=== PATIENT | male | born 1940 | race Two or more races ===

== ENCOUNTER 2020-07-11 05:26 | Inpatient (IN) | payer MEDICARE, OTHER ==
[2020-07-11] VITALS (17 sets, daily range): BP systolic 157–197; BP diastolic 60–89
[~2020-07-11] VITALS: Ht 170.2 cm; Wt 83.9 kg
[2020-07-11] MEDS ORDERED: 1/2 NS 1000ml IV ONE (05:27)
[2020-07-11] MEDS ORDERED: NS 500ML ONE (05:27)
[2020-07-11] MEDS ORDERED: CARVEDILOL12.5 MG ORAL (06:13)
[2020-07-11] MEDS ORDERED: MYRBETRIQ50 MG PO (06:13)
[2020-07-11] MEDS ORDERED: TRADJENTA5 MG PO (06:13)
[2020-07-11] MEDS ORDERED: ATORVASTATIN CA20 MG ORAL (06:13)
[2020-07-11] MEDS ORDERED: OYSTER SHELL 21 EAC2 PO (06:13)
[2020-07-11] MEDS ORDERED: DOXAZOSIN MESYLA1 MG ORAL (06:13)
[2020-07-11] MEDS ORDERED: FERROUS SULFAT325 MG ORAL (06:13)
[2020-07-11] MEDS ORDERED: OMEGA-31000 M1 PO (06:13)
[2020-07-11] MEDS ORDERED: HYDRALAZINE HC100 MG ORAL (06:13)
[2020-07-11] MEDS ORDERED: ceFAZolin sod 1 GM in NS 55 ML IVPB ONE (07:00)
[2020-07-11] MEDS ORDERED: fentaNYL 100 mcg/2 mL IV ONE (07:08)
[2020-07-11] MEDS ORDERED: Midazolam 2mg/2ml Inj ONE (07:09)
[2020-07-11] MEDS ORDERED: Rocuronium Bromide 50mg/5ml Inj IV ONE (07:17)
[2020-07-11] MEDS ORDERED: Iothalamate Meglumine 60% 50ML INJ ONE (07:19)
[2020-07-11] MEDS ORDERED: Sterile Water Irrig 1000ml IRRIG ONE (07:30)
[2020-07-11] MEDS ORDERED: LR 1000ml ONE (07:30)
[2020-07-11] MEDS ORDERED: NS Irrig 1000ml ONE (07:30)
--- NOTE | 2020-07-11 07:37 | Anethesia Preoperative Eval ---
Anesthesia Pre-op PMH/ROS General Date of Evaluation: Jul 11, 2020 Time of Evaluation: 07:34 Anesthesiologist: judith ASA Score: ASA 3 Mallampati Score Class I : Soft palate, uvula, fauces, pillars visible Class II: Soft palate, uvula, fauces visible Class III: Soft palate, base of uvula visible Class IV: Only hard plate visible Mallampati Classification: Class III Surgeon: Jackie Diagnosis: Bladder CA Surgical Procedure: TURP Anesthesia History: none, other - cardiac arrest post nephrectomy Family History: no anesthesia problems Allergies: Coded Allergies: No Known Allergies (Unverified , 07/11/20) Medications: see eMAR Patient NPO?: Yes NPO Date: Jul 11, 2020 NPO Time: 00:01 Past Medical History Cardiovascular: Reports: HTN, CAD, other - hx cardiac arrest Pulmonary: Denies: asthma, COPD, LENIN, other Gastrointestinal/Genitourinary: Reports: CRI Neurologic/Psychiatric: Denies: dementia, CVA, depression/anxiety, TIA, other Endocrine: Reports: DM; Denies: hypothyroidism, steroids, other HEENT: Denies: cataract (L), cataract (R), glaucoma, EKWOK (L), EKWOK (R), other Hematology/Immune: Denies: anemia, DVT, bleeding disorder, other Musculoskeletal/Integumentary: Denies: OA, RA, DJD, DDD, edema, other PMH Narrative: CAD, Cardiac Arrest a year ago post nephrectomy, delayed emergence from anesthesia post TURP according to daughter PSxH Narrative: Nephrectomy; TURP X2 Anesthesia Pre-op Phys. Exam Physician Exam Last Vital Signs Date Time Temp Pulse Resp B/P (MAP) Pulse Ox O2 Delivery O2 Flow Rate FiO2 07/11/20 05:55 Room Air 07/11/20 05:54 97.3 61 20 184/76 99 Constitutional: NAD Neurologic: CN 2-12 intact Cardiovascular: RRR Respiratory: CTA Gastrointestinal: S/NT/ND Airway Exam Mallampati Classification 3 Mallampati Score: Class III MO: full ROM: full Dentures: no upper, no lower Anesthesia Pre-op A/P Labs Chemistry Test 07/11/20 05:51 POC Whole Blood Glucose Pending Studies Pre-op Studies: EKG - SR Risk Assessment & Plan Assessment: denies cp/changes in health, spoke with daughter Plan: General Status Change Before Surgery: No Pre-Antibiotics Drug: ancef Given Within 1 Hr of Incision: Yes Time Given: 07:40 Lis Ansari CRNA Jul 11, 2020 07:37
[2020-07-11] MEDS ORDERED: fentaNYL 100 mcg/2 mL IV PRN (07:45)
[2020-07-11] MEDS ORDERED: Metoclopramide 10mg/2ml Inj IVP PRN (07:45)
--- NOTE | 2020-07-11 07:53 | Pre-Procedure Note/Attestation ---
Pre-Procedure Note/Attestation Complete Prior to Procedure Planned Procedure: not applicable Procedure Narrative: TURBT RPG Indications for Procedure Pre-Operative Diagnosis: bladder tumor Attestation I attest that I discussed the nature of the procedure; its benefits; risks and complications; and alternatives (and the risks and benefits of such alternatives), prior to the procedure, with the patient (or the patient's legal technical services representative). I attest that, if there was a reasonable possibility of needing a blood t ransfusion, the patient (or the patient's legal technical services representative) was given the [facility] standardized written summary, pursuant to the Jori Haylie Blood Safety Act ([place] Health and Safety Code # 1645, as amended). I attest that I re-evaluated the patient just prior to the surgery and that there has been no change in the patient's H&P, except as documented below: Valentin Mejia MD Jul 11, 2020 07:53
[2020-07-11] MEDS ORDERED: Lidocaine 1% MPF 10mg/ml 5ml ONE (08:00)
--- NOTE | 2020-07-11 08:06 | Brief Operative Note ---
Immediate Post Operative Note Operative Note Pre-op Diagnosis: bladder tumor Procedure: TURBT RPG Post-op Diagnosis: same Post-op Diagnosis: same as pre-op Surgeon: Pk Mejia Anesthesia: general Specimen: yes Complications: none Condition: stable Fluids: 500 Estimated Blood Loss: minimal Implant(s) used?: No Valentin Mejia MD Jul 11, 2020 08:06
[2020-07-11] MEDS ORDERED: Tylenol #3 tab (300mg/30mg) ORAL PRN (08:15)
[2020-07-11] MEDS ORDERED: HYDROmorphone 1mg/ml Carpuject SUBQ PRN (08:15)
[2020-07-11] MEDS ORDERED: Neostigmine 1mg/ml 10ml Inj ONE (08:17)
[2020-07-11] MEDS ORDERED: Glycopyrrolate 0.2mg/ml 1ml Vial ONE ×2 (08:17→08:19)
[2020-07-11] MEDS ORDERED: ePHEDrine 50mg/ml Inj ONE (08:17)
[2020-07-11] MEDS ORDERED: Metoprolol Tartrate 5mg/5ml Inj ONE (08:33)
[2020-07-11] MEDS ORDERED: HYDROmorphone 1mg/ml Carpuject IVP ONE (09:00)
[2020-07-11] MEDS ORDERED: Labetalol 5mg/ml 20ml vial IV PRN (09:00)
--- NOTE | 2020-07-11 09:00 | Immediate Post-Op Evaluation ---
Immediate Post-Op Evalulation Immediate Post-Op Evalulation Procedure: TURP Date of Evaluation: Jul 11, 2020 Time of Evaluation: 08:59 IV Fluids: 1000 Blood Products: 0 Estimated Blood Loss: 5 Blood Pressure Systolic: 170 Blood Pressure Diastolic: 80 Pulse Rate: 79 Respiratory Rate: 14 O2 Sat by Pulse Oximetry: 98 Temperature (Fahrenheit): 98.1 Nausea: No Vomiting: No Patient Status: awake, reacts, patent Hydration Status: adequate Drug: ancef Given Within 1 Hr of Incision: Yes Time Given: 07:40 Lis Ansari CRNA Jul 11, 2020 09:00
[2020-07-11 10:03] LABS: HEMATOCRIT 29.8 % (42.0-52.0); HEMOGLOBIN 10.5 G/DL (14.2-18.0); MEAN CORPUSCULAR VOLUME 83 FL (80-99); PLATELET COUNT 72 K/UL (150-450); RED BLOOD COUNT 3.59 M/UL (4.70-6.10); RED CELL DISTRIBUTION WIDTH 14.6 % (11.6-14.8); WHITE BLOOD COUNT 4.6 K/UL (4.8-10.8)
[2020-07-11 10:20] LABS: POTASSIUM 4.7 MMOL/L (3.5-5.1)
--- NOTE | 2020-07-11 11:02 | 48 Hour Post Anesthesia Eval ---
Post Anesthesia Evaluation Procedure: TURBT Date of Evaluation: Jul 11, 2020 Time of Evaluation: 11:01 Blood Pressure Systolic: 169 0: 70 Pulse Rate: 78 Respiratory Rate: 14 O2 Sat by Pulse Oximetry: 98 Airway: patent Nausea: No Vomiting: No Hydration Status: adequate Cardiopulmonary Status: stable Mental Status/LOC: patient returned to baseline Post-Anesthesia Complications: none Follow-up care needed: N/A Lsi Ansari CRNA Jul 11, 2020 11:02
[2020-07-11] MEDS ORDERED: D5 1/2NS 1,000 ML IV SCH (12:00)
--- NOTE | 2020-07-11 15:04 | General Progress Note ---
Subjective Allergies: Coded Allergies: No Known Allergies (Unverified , 07/11/20) Subjective asked to follow d/w urology Objective Last 24 Hour Vital Signs Date Time Temp Pulse Resp B/P (MAP) Pulse Ox O2 Delivery O2 Flow Rate FiO2 07/11/20 13:40 97 Nasal Cannula 3.0 32 07/11/20 12:30 97.5 76 16 160/76 (104) 97 07/11/20 11:50 97.5 78 16 162/78 (106) 97 07/11/20 11:37 Nasal Cannula 3.0 07/11/20 11:20 97.3 75 16 166/80 (108) 97 07/11/20 11:02 78 14 98 07/11/20 11:00 98.0 76 17 164/84 96 Nasal Cannula 3 07/11/20 10:45 75 13 167/74 96 Nasal Cannula 3 07/11/20 10:30 79 15 183/83 96 Nasal Cannula 3 07/11/20 10:15 73 17 179/84 96 Nasal Cannula 3 07/11/20 10:05 189/89 07/11/20 10:00 72 14 187/87 97 Nasal Cannula 3 07/11/20 09:30 77 15 186/82 100 Nasal Cannula 3 07/11/20 09:15 78 18 187/84 100 Simple Mask 6 07/11/20 09:08 189/87 07/11/20 09:00 75 17 197/88 100 Simple Mask 6 07/11/20 09:00 79 14 98 07/11/20 08:50 77 16 189/89 100 Simple Mask 6 07/11/20 08:42 98.4 80 18 190/60 100 Simple Mask 6 07/11/20 05:55 Room Air 07/11/20 05:54 97.3 61 20 184/76 99 Room Air Intake and Output 07/10/20 07/11/20 19:00 07:00 # Voids 1 Laboratory Tests 07/11/20 05:51: POC Whole Blood Glucose [Pending] 07/11/20 09:55: White Blood Count 4.6L, Red Blood Count 3.59L, Hemoglobin 10.5L, Hematocrit 29.8L, Mean Corpuscular Volume 83, Mean Corpuscular Hemoglobin 29.1, Mean Corpuscular Hemoglobin Concent 35.1, Red Cell Distribution Width 14.6, Platelet Count 72L, Mean Platelet Volume 9.8, Neutrophils (%) (Auto) , Lymphocytes (%) (Auto) , Monocytes (%) (Auto) , Eosinophils (%) (Auto) , Basophils (%) (Auto) , Differential Total Cells Counted 100, Neutrophils % (Manual) 64, Lymphocytes % (Manual) 31, Monocytes % (Manual) 5, Eosinophils % (Manual) 0, Basophils % (Manual) 0, Band Neutrophils 0, Platelet Estimate DecreasedL, Platelet Morphology Normal, Anisocytosis 1+, Sodium Level 138, Potassium Level 4.7, Chloride Level 107, Carbon Dioxide Level 25, Anion Gap 6, Blood Urea Nitrogen 26H, Creatinine 2.0H, Estimat Glomerular Filtration Rate 32.5, Glucose Level 216H, Calcium Level 8.0L Height (Feet): 5 Height (Inches): 7.00 Weight (Pounds): 185 Objective WDWN NAD clear breath sounds bilaterally without rhonchi or wheeze [id number] without MRG NABS nontender no HSM no CCE nonfocal Assessment/Plan Assessment/Plan: TURBT RPG diabetes hypertension elevated cholesterol 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 incentive spirometry 2. Body CT per Urology 3. PT evaluation and therapy 4. Hydration 5. Pain management 6. discharge once stable with outpatient follow up Reddy Woods MD Jul 11, 2020 15:04
[2020-07-11] MEDS ORDERED: ceFAZolin sod 1 GM in NS 55 ML IVPB SCH ×4 (15:30)
[2020-07-11] MEDS: Milk of Magnesia 30ml Ud ORAL PRN (15:50)
[2020-07-11] MEDS: ceFAZolin sod 1 GM in NS 55 ML IVPB SCH (15:50)
[2020-07-11] MEDS: HydrALAZINE 50mg tab ORAL SCH (17:30)
[2020-07-11] MEDS: HYDROcodone/Acetamin 5/325 tab ORAL PRN (17:34)
[2020-07-11] MEDS: Carvedilol 6.25mg Tab ORAL SCH (21:25)
[2020-07-11] MEDS: Atorvastatin 20mg tab ORAL SCH (21:25)
[2020-07-11] MEDS: Levemir Flexpen SUBQ SCH (21:34)
[2020-07-12] VITALS: BP 155/80
[2020-07-12 04:00] VITALS: BP 132/52
[2020-07-12] MEDS: ceFAZolin sod 1 GM in NS 55 ML IVPB SCH ×2 (05:00→16:23)
[2020-07-12 08:00] VITALS: BP 155/81
[2020-07-12] MEDS: Doxazosin 1mg Tab ORAL SCH (08:11)
[2020-07-12] MEDS: Calcium Carbonate 500mg w/Vit D 200iu tab ORAL SCH (08:12)
[2020-07-12] MEDS: HydrALAZINE 50mg tab ORAL SCH ×3 (08:12→18:00)
[2020-07-12] MEDS: Carvedilol 6.25mg Tab ORAL SCH ×2 (08:12→21:17)
[2020-07-12] MEDS: Levemir Flexpen SUBQ SCH ×2 (08:16→21:18)
[2020-07-12 12:00] VITALS: BP 163/69
--- NOTE | 2020-07-12 14:20 | General Progress Note ---
Subjective Allergies: Coded Allergies: No Known Allergies (Unverified , 07/11/20) Subjective asked to follow d/w urology seen earlier Objective Last 24 Hour Vital Signs Date Time Temp Pulse Resp B/P (MAP) Pulse Ox O2 Delivery O2 Flow Rate FiO2 07/12/20 12:57 163/69 07/12/20 12:00 98.7 77 22 163/69 (100) 96 07/12/20 09:00 Room Air 07/12/20 08:12 155/81 07/12/20 08:12 74 155/81 07/12/20 08:00 98.6 74 22 155/81 (105) 96 07/12/20 04:00 97.8 78 22 132/52 (78) 95 07/12/20 00:00 98.4 96 20 155/80 (105) 95 07/11/20 21:25 98 169/79 07/11/20 21:00 Room Air 07/11/20 20:00 97.5 98 20 169/79 (109) 97 07/11/20 17:30 176/83 07/11/20 15:56 97.6 75 16 176/83 (114) 97 Intake and Output 07/11/20 07/12/20 19:00 07:00 Intake Total 350 ml 1555 ml Output Total 7800 ml 2500 ml Balance -7450 ml -945 ml Intake Oral 400 ml IV Total 350 ml 1155 ml Output Urine Total 1800 ml 2500 ml Other 6000 ml Laboratory Tests 07/11/20 21:14: POC Whole Blood Glucose 189H 07/12/20 11:12: POC Whole Blood Glucose 176H Height (Feet): 5 Height (Inches): 7.00 Weight (Pounds): 185 Objective WDWN NAD clear breath sounds bilaterally without rhonchi or wheeze [id number] without MRG NABS nontender no HSM no CCE nonfocal Assessment/Plan Assessment/Plan: TURBT RPG diabetes hypertension elevated cholesterol 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 incentive spirometry 2. Body CT per Urology 3. PT evaluation and therapy 4. Hydration 5. Pain management 6. ok to dc per medicine impression, plan, and exam edited and reviewed in detail care discussed with Reddy Christensen MD Jul 12, 2020 14:20
[2020-07-12 16:00] VITALS: BP 152/70
--- NOTE | 2020-07-12 16:56 | Diagnostic Imaging Report ---
CLINICAL INDICATION:Pelvic pain, history of bladder tumor TECHNIQUE: Patient ingested oral contrast Noncontrast spiral acquisitions obtained through the chest, abdomen, and pelvis. Multiplanar reconstructions were generated. Total dose length product 662 mGycm. CTDIvol(s) 9 mGy. Radiation dose was minimized using automated exposure control COMPARISON: none FINDINGS Chest: The lungs demonstrate posterior dependent atelectatic changes. No infiltrates, effusions, masses, or nodules. The heart is mildly enlarged. No pericardial effusion. No mediastinal or hilar mass or adenopathy. There are coronary artery calcifications. Esophagus is unremarkable. The thyroid is unremarkable. No axillary or chest wall mass or adenopathy. The bones are unremarkable. Abdomen pelvis: There is a Elizabeth catheter within the bladder. High attenuation material is seen within the bladder lumen, as well as a nondependent gas bubble. The bladder wall is not well-defined. A few other gas bubbles are seen within the bladder lumen as well. Surrounding the bladder, there is marked fluid infiltration of the perivesical fat. A discrete fluid collection is seen anterior to the bladder, measures approximately 17 cm transverse by 2.5 cm AP by 7 cm craniocaudad and presumably occupies the space of Retzius. Fluid is also seen infiltrating into the retroperitoneal fat bilaterally, along the posterior Gerota's fascia, and a very small amount of intraperitoneal fluid is also noted, primarily over the dome of the liver. Fluid is also seen tracking into the bilateral inguinal canals and also to a slight extent surrounding the inferior rectus abdominis musculature. The right kidney is absent. The left kidney demonstrates mild hydronephrosis and moderate hydroureter, hydroureter extending to the distal ureteral orifice. No obstructing mass or stone demonstrated. Lack of IV contrast limits assessment of the renal parenchyma. No gross renal rectal abnormality is demonstrated. The lack of IV contrast limits assessment of the other solid organs. The liver, gallbladder, bile ducts, pancreas are unremarkable. The spleen is enlarged, measuring 15 cm long axis dimension. The adrenals are unremarkable. No retroperitoneal or mesenteric mass or adenopathy. The appendix is normal. No small bowel distention. No free or loculated intraperitoneal gas is demonstrated. The colon is unremarkable. No diverticulosis or diverticulitis. There is an inferior vena cava filter which appears to be in good position. The bones are unremarkable except for mild degenerative spondylosis changes IMPRESSION: Markedly abnormal bladder. High attenuation bladder luminal contents may reflect blood or could represent intraluminal contrast if contrast was used during recent surgery. There is extensive infiltration of the perivesical fat, as well as fluid filling the space of Retzius, infiltration of the bilateral inguinal canals, Gerota's fascia on the left, and a small amount of free intraperitoneal fluid. This raises concern for bladder wall injury. A Elizabeth catheter appears well-positioned Mild left hydronephrosis and moderate left hydroureter extending to the ureteral orifice, without definite obstructive process Absent right kidney Mild splenomegaly Inferior vena cava filter, degenerative spondylosis incidentally noted Mild cardiomegaly. Dependent pulmonary atelectatic changes. Otherwise unremarkable chest Findings were discussed by phone with Dr. Mejia The CT scanner at [facility] is accredited by the [employer] and the scans are performed using protocols designed to limit radiation exposure to as low as reasonably achievable to attain images of sufficient resolution adequate for diagnostic evaluation.
--- NOTE | 2020-07-12 19:00 | Operative Note - Dictated ---
DATE OF OPERATION: 07/12/2020 SURGEON: Valentin Mejia MD PREOPERATIVE DIAGNOSIS: Recurrent bladder cancer. POSTOPERATIVE DIAGNOSIS: Recurrent bladder cancer. OPERATION: Transurethral resection of a bladder tumor. MACHINE CLEANER: Valentin Mejia MD ANESTHESIA: General. FINDINGS: Multiple tumors occupying the whole surface of the bladder and prostatic urethra. 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 Cystoscopy in the office showed significant amount of tumor in the bladder. I recommended the patient to have a cystectomy; however, he did not want to proceed with cystectomy and wanted to have another-look TURBT, which I agreed on and scheduled the patient for surgery. He underwent for surgery and potential complications were explained. He signed the consent. DESCRIPTION OF OPERATION: Brought to the operating room, placed in lithotomy position, prepped and draped in standard fashion. Under general anesthesia, a resectoscope was introduced. The sphincter was wide open and noncompliant. The prostate was previously resected, very short and wide open. The bladder neck was covered with tumor mass. While inserting the resectoscope into the bladder, it became very quickly noted tumor was basically occupying 99% on the bladder surface with significant tumor mass and was unresectable. Several swipes with the resectoscope was done to suggest staging of the tumor deep into the muscles. Tumor was fulgurated. Elizabeth catheter 3-way was inserted, CBI started. The patient transferred to recovery room in stable condition. Sponge count and instrument count was correct. Valentin Mejia M.D. DR: Bibiana JOB#: [id number] CC:
[2020-07-12 20:25] VITALS: BP 179/87
[2020-07-12] MEDS: Atorvastatin 20mg tab ORAL SCH (21:17)
[2020-07-13] VITALS: BP 148/79
[2020-07-13 04:00] VITALS: BP 169/80
[2020-07-13] MEDS: ceFAZolin sod 1 GM in NS 55 ML IVPB SCH ×2 (04:11→16:13)
[2020-07-13 08:00] VITALS: BP 164/73
[2020-07-13] MEDS: Doxazosin 1mg Tab ORAL SCH (08:56)
[2020-07-13] MEDS: Carvedilol 6.25mg Tab ORAL SCH ×2 (08:56→23:48)
[2020-07-13] MEDS: Calcium Carbonate 500mg w/Vit D 200iu tab ORAL SCH (08:56)
[2020-07-13] MEDS: HydrALAZINE 50mg tab ORAL SCH ×3 (08:57→17:23)
[2020-07-13] MEDS: Levemir Flexpen SUBQ SCH ×2 (09:06→23:52)
[2020-07-13 12:00] VITALS: BP 157/70
--- NOTE | 2020-07-13 12:29 | General Progress Note ---
Subjective Allergies: Coded Allergies: No Known Allergies (Unverified , 07/11/20) Subjective asked to follow seen earlier Objective Last 24 Hour Vital Signs Date Time Temp Pulse Resp B/P (MAP) Pulse Ox O2 Delivery O2 Flow Rate FiO2 07/13/20 09:00 Room Air 07/13/20 08:57 164/73 07/13/20 08:56 68 164/73 07/13/20 08:00 98.0 68 16 164/73 (103) 99 07/13/20 05:27 169/80 07/13/20 04:00 98.4 75 20 169/80 (109) 97 07/13/20 00:00 98.0 74 20 148/79 (102) 96 07/12/20 21:17 75 179/87 07/12/20 21:00 Room Air 07/12/20 20:25 97.9 75 20 179/87 (117) 98 07/12/20 18:00 152/70 07/12/20 16:00 98.4 85 22 152/70 (97) 97 07/12/20 12:57 163/69 Intake and Output 07/12/20 07/13/20 18:59 06:59 Intake Total 500 ml 7275 ml Output Total 1000 ml 7100 ml Balance -500 ml 175 ml Intake Oral 500 ml 120 ml IV Total 1155 ml Other 6000 ml Output Urine Total 1000 ml 7100 ml Laboratory Tests 07/12/20 21:00: POC Whole Blood Glucose 143H 07/13/20 08:55: POC Whole Blood Glucose [Pending] Height (Feet): 5 Height (Inches): 7.00 Weight (Pounds): 185 Objective WDWN NAD clear breath sounds bilaterally without rhonchi or wheeze [id number] without MRG NABS nontender no HSM no CCE nonfocal Assessment/Plan Assessment/Plan: TURBT RPG diabetes hypertension elevated cholesterol 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 incentive spirometry 2. Body CT per Urology reviewed 3. PT evaluation and therapy 4. Hydration 5. Pain management 6. ok to dc per medicine; defer to urology impression, plan, and exam edited and reviewed in detail care discussed with Reddy Christensen MD Jul 13, 2020 12:29
--- NOTE | 2020-07-13 14:26 | Consultation ---
History of Present Illness General Date patient seen: Jul 13, 2020 Present Illness HPI 79-year-old male status post TURP currently with constant bladder irrigation in place identified have pelvic abdominal pain complaining cramping. Decreased appetite at times. No nausea vomit fever chills. Labs noted. Surgical to evaluate and assist with care. Patient seen, patient evaluate, chart reviewed Allergies: Coded Allergies: No Known Allergies (Unverified , 07/11/20) COVID-19 Screening Contact w/high risk pt: No Experienced COVID-19 symptoms?: No Medication History Scheduled Atorvastatin Calcium* (Atorvastatin Calcium*), 20 MG ORAL BEDTIME, (Reported) Calcium Carbonate/Vitamin D3 (Oyster Shell 250-Vit D3 125 Tb), 1 EACH PO DAILY, (Reported) Carvedilol* (Carvedilol*), 6.25 MG ORAL EVERY 12 HOURS, (Reported) Doxazosin Mesylate* (Doxazosin Mesylate*), 1 MG ORAL DAILY, (Reported) Ferrous Sulfate* (Ferrous Sulfate*), 325 MG ORAL DAILY, (Reported) Hydralazine Hcl* (Hydralazine Hcl*), 100 MG ORAL TID, (Reported) Linagliptin (Tradjenta), 5 MG PO DAILY, (Reported) Mirabegron (Myrbetriq), 50 MG PO DAILY, (Reported) [place]-3 Fatty Acids ([place]-3), 1,000 MG PO DAILY, (Reported) Patient History History Provided By: Patient, Medical Record, PMD Healthcare decision maker Resuscitation status Advanced Directive on File Past Medical/Surgical History Past Medical/Surgical History: (1) Abdominal pain (2) Bladder tumor Review of Systems Review of Symptoms General ROS: no weight loss or fever Psychological ROS: no depression or mood changes, no memory loss Ophthalmic ROS: no visual changes or eye irritation ENT ROS: no nasal congestion, hearing loss, dizziness Allergy and Immunology ROS: no allergic symptoms or urticaria Hematological and Lymphatic ROS: no swollen glands, unusual bleeding or bruising Endocrine ROS: no polyuria, polydipsia, weight changes, temperature intolerance Respiratory ROS: no cough, shortness of breath, or wheezing Cardiovascular ROS: no chest pain or dyspnea on exertion Gastrointestinal ROS: +discomfort abdominal pain, no bright red blood in stool. Musculoskeletal ROS: no myalgias or arthralgias Neurological ROS: no TIA or stroke symptoms Dermatological ROS: no new or changing skin lesions, rashes or pruritis Physical Exam Physical Exam General appearance: alert, cooperative, no distress, appears stated age Head: Normocephalic, without obvious abnormality, atraumatic Eyes: conjunctivae/corneas clear. PERRL, EOM's intact. Fundi benign Throat: Lips, mucosa, and tongue normal. Teeth and gums normal Neck: supple, symmetrical, trachea midline, no adenopathy, thyroid: not enlarged, symmetric, no tenderness/mass/nodules, no carotid bruit and no JVD Lungs: clear to auscultation bilaterally Heart: regular rate and rhythm, S1, S2 normal, no murmur, click, rub or gallop Abdomen: soft, non-tender. Bowel sounds normal. No masses, no organomegaly Extremities: extremities normal, atraumatic, no cyanosis or edema Pulses: 2+ and symmetric Skin: Skin color, texture, turgor normal. No rashes or lesions Neurologic: Grossly normal Last 24 Hour Vital Signs Date Time Temp Pulse Resp B/P (MAP) Pulse Ox O2 Delivery O2 Flow Rate FiO2 07/13/20 13:22 157/70 07/13/20 12:00 97.4 72 16 157/70 (99) 96 07/13/20 09:00 Room Air 07/13/20 08:57 164/73 07/13/20 08:56 68 164/73 07/13/20 08:00 98.0 68 16 164/73 (103) 99 07/13/20 05:27 169/80 07/13/20 04:00 98.4 75 20 169/80 (109) 97 07/13/20 00:00 98.0 74 20 148/79 (102) 96 07/12/20 21:17 75 179/87 07/12/20 21:00 Room Air 07/12/20 20:25 97.9 75 20 179/87 (117) 98 07/12/20 18:00 152/70 07/12/20 16:00 98.4 85 22 152/70 (97) 97 Intake and Output 07/12/20 07/13/20 19:00 07:00 Intake Total 3500 ml 4275 ml Output Total 1000 ml 7100 ml Balance 2500 ml -2825 ml Intake Oral 500 ml 120 ml IV Total 1155 ml Other 3000 ml 3000 ml Output Urine Total 1000 ml 7100 ml Laboratory Tests Test 07/12/20 21:00 07/13/20 08:55 POC Whole Blood Glucose 143 MG/DL (74-106) H Pending Height (Feet): 5 Height (Inches): 7.00 Weight (Pounds): 185 Medications Current Medications Medications (Trade) Dose Ordered Sig/Silva Route PRN Reason Start Time Stop Time Status Last Admin Dose Admin Acetaminophen/ Codeine Phosphate (Tylenol #3) 1 tab Q4H PRN ORAL MILD PAIN 07/11/20 08:15 07/18/20 08:14 Acetaminophen/ Hydrocodone Bitart ([place] 5/325) 1 tab Q4H PRN ORAL Moderate Pain (Pain Scale 4-6) 07/11/20 08:15 07/18/20 08:14 07/11/20 17:34 Atorvastatin Calcium (Lipitor) 20 mg BEDTIME ORAL 07/11/20 21:00 10/09/20 20:59 07/12/20 21:17 Barium Sulfate (Readi-Cat 2) 450 ml NOW PRN ORAL Radiology Procedure 07/11/20 15:15 07/13/20 15:14 Calcium/Vitamin D (OsCal D) 1 tab DAILY ORAL 07/12/20 09:00 10/10/20 08:59 07/13/20 08:56 Carvedilol (Coreg) 6.25 mg EVERY 12 HOURS ORAL 07/11/20 21:00 08/10/20 20:59 07/13/20 08:56 Cefazolin Sodium 1 gm/Sodium Chloride 55 ml @ 110 mls/hr Q12H IVPB 07/11/20 16:00 07/18/20 15:59 07/13/20 04:11 Clonidine HCl (Catapres Tab) 0.1 mg Q4H PRN ORAL For High Blood Pressure 07/12/20 21:15 10/10/20 21:14 07/13/20 05:27 Doxazosin Mesylate (Cardura) 1 mg DAILY ORAL 07/12/20 09:00 08/11/20 08:59 07/13/20 08:56 Ferrous Sulfate (Feosol) 325 mg DAILY ORAL 07/12/20 09:00 10/10/20 08:59 07/13/20 08:56 Hydralazine HCl (Apresoline) 100 mg TID ORAL 07/11/20 18:00 10/09/20 17:59 07/13/20 13:22 Hydromorphone HCl (Dilaudid) 1 mg Q1H PRN SUBQ Severe Pain (Pain Scale 7-10) 07/11/20 08:15 07/18/20 08:14 07/11/20 21:25 Insulin Detemir (Levemir) 16 units Q12HR SUBQ 07/11/20 20:00 10/09/20 19:59 07/13/20 09:06 Magnesium Hydroxide (Mom) 30 ml DAILYPRN PRN ORAL Constipation 07/11/20 15:30 08/10/20 15:29 07/11/20 15:50 Patient Own Medication (Patient's Own Med) 1 ea DAILY ORAL 07/12/20 09:00 08/11/20 08:59 UNV Patient Own Medication (Patient's Own Med) 1 ea DAILY ORAL 07/12/20 09:00 08/11/20 08:59 UNV Patient Own Medication (Patient's Own Med) 1 ea DAILY ORAL 07/12/20 09:00 08/11/20 08:59 UNV Sodium Chloride 1,000 ml @ 100 mls/hr Q10H IV 07/11/20 12:45 08/10/20 12:44 07/13/20 10:01 Assessment/Plan Problem List: (1) Abdominal pain Assessment & Plan: 79-year-old male status post TURP presents with abdominal pain in hospital stay urine still remains bloody on continuous bladder irrigation currently. Complaining abdominal discomfort lower pelvis. Surgery called to evaluate patient seen states feels 4 out of 10 discomfort no nausea vomiting no fever no chills labs noted. CT reviewed. Abdominal examination fairly benign just little uncomfortable on deep palpation. Likely residual from inflammation and given the CT findings potentially from the work of abnormal bladder. Currently continue CBI. Unlikely be ready for discharge. Will need to clear urine prior. Okay for diet. Continue current medications. Follow with recommendations. Thank you for let me participate patient's care Chest: The lungs demonstrate posterior dependent atelectatic changes. No infiltrates, effusions, masses, or nodules. The heart is mildly enlarged. No pericardial effusion. No mediastinal or hilar mass or adenopathy. There are coronary artery calcifications. Esophagus is unremarkable. The thyroid is unremarkable. No axillary or chest wall mass or adenopathy. The bones are unremarkable. Abdomen pelvis: There is a Elizabeth catheter within the bladder. High attenuation material is seen within the bladder lumen, as well as a nondependent gas bubble. The bladder wall is not well-defined. A few other gas bubbles are seen within the bladder lumen as well. Surrounding the bladder, there is marked fluid infiltration of the perivesical fat. A discrete fluid collection is seen anterior to the bladder, measures approximately 17 cm transverse by 2.5 cm AP by 7 cm craniocaudad and presumably occupies the space of Retzius. Fluid is also seen infiltrating into the retroperitoneal fat bilaterally, along the posterior Gerota's fascia, and a very small amount of intraperitoneal fluid is also noted, primarily over the dome of the liver. Fluid is also seen tracking into the bilateral inguinal canals and also to a slight extent surrounding the inferior rectus abdominis musculature. The right kidney is absent. The left kidney demonstrates mild hydronephrosis and moderate hydroureter, hydroureter extending to the distal ureteral orifice. No obstructing mass or stone demonstrated. Lack of IV contrast limits assessment of the renal parenchyma. No gross renal rectal abnormality is demonstrated. The lack of IV contrast limits assessment of the other solid organs. The liver, gallbladder, bile ducts, pancreas are unremarkable. The spleen is enlarged, me asuring 15 cm long axis dimension. The adrenals are unremarkable. No retroperitoneal or mesenteric mass or adenopathy. The appendix is normal. No small bowel distention. No free or loculated intraperitoneal gas is demonstrated. The colon is unremarkable. No diverticulosis or diverticulitis. There is an inferior vena cava filter which appears to be in good position. The bones are unremarkable except for mild degenerative spondylosis changes IMPRESSION: Markedly abnormal bladder. High attenuation bladder luminal contents may reflect blood or could represent intraluminal contrast if contrast was used during recent surgery. There is extensive infiltration of the perivesical fat, as well as fluid filling the space of Retzius, infiltration of the bilateral inguinal canals, Gerota's fascia on the left, and a small amount of free intraperitoneal fluid. This raises concern for bladder wall injury. A Elizabeth catheter appears well-positioned Mild left hydronephrosis and moderate left hydroureter extending to the ureteral orifice, without definite obstructive process Absent right kidney Mild splenomegaly Inferior vena cava filter, degenerative spondylosis incidentally noted Mild cardiomegaly. Dependent pulmonary atelectatic changes. Otherwise unremarkable chest ICD Codes: R10.9 - Unspecified abdominal pain SNOMED: 03481992 (2) Bladder tumor ICD Codes: D49.4 - Neoplasm of unspecified behavior of bladder SNOMED: 071131837 Michael Cuba Jul 13, 2020 14:26
[2020-07-13 16:00] VITALS: BP 122/63
[2020-07-13 20:00] VITALS: BP 157/75
[2020-07-13] MEDS: Atorvastatin 20mg tab ORAL SCH (23:48)
[2020-07-13] MEDS: Milk of Magnesia 30ml Ud ORAL PRN (23:48)
[2020-07-14] VITALS: BP 145/80
[2020-07-14] MEDS: ceFAZolin sod 1 GM in NS 55 ML IVPB SCH (02:55)
[2020-07-14] MEDS: HYDROcodone/Acetamin 5/325 tab ORAL PRN ×2 (02:56→13:35)
[2020-07-14 04:00] VITALS: BP 148/80
[2020-07-14 05:52] LABS: HEMATOCRIT 26.3 % (42.0-52.0); HEMOGLOBIN 9.4 G/DL (14.2-18.0); MEAN CORPUSCULAR VOLUME 81 FL (80-99); PLATELET COUNT 97 K/UL (150-450); RED BLOOD COUNT 3.25 M/UL (4.70-6.10); RED CELL DISTRIBUTION WIDTH 14.9 % (11.6-14.8); WHITE BLOOD COUNT 8.8 K/UL (4.8-10.8)
[2020-07-14 06:04] LABS: ALBUMIN 3.1 G/DL (3.4-5.0); ALBUMIN/GLOBULIN RATIO 0.8 (1.0-2.7); BILIRUBIN,TOTAL 0.6 MG/DL (0.2-1.0); CALCIUM 8.7 MG/DL (8.5-10.1); POTASSIUM 4.8 MMOL/L (3.5-5.1)
[2020-07-14 08:00] VITALS: BP 160/76
[2020-07-14] MEDS: Calcium Carbonate 500mg w/Vit D 200iu tab ORAL SCH (08:20)
[2020-07-14] MEDS: HydrALAZINE 50mg tab ORAL SCH ×2 (08:21→13:00)
[2020-07-14] MEDS: Carvedilol 6.25mg Tab ORAL SCH (08:22)
[2020-07-14] MEDS: Doxazosin 1mg Tab ORAL SCH (08:22)
[2020-07-14] MEDS: Levemir Flexpen SUBQ SCH (08:28)
[2020-07-14] MEDS ORDERED: TRADJENTA 5 MG ORAL SCH (09:00)
[2020-07-14 11:51] VITALS: BP 148/68
[2020-07-14 16:00] VITALS: BP 136/110
--- NOTE | 2020-07-14 18:16 | General Progress Note ---
Subjective Allergies: Coded Allergies: No Known Allergies (Unverified , 07/11/20) Subjective no distress cleared for dc seen earlier Objective Last 24 Hour Vital Signs Date Time Temp Pulse Resp B/P (MAP) Pulse Ox O2 Delivery O2 Flow Rate FiO2 07/14/20 16:00 98.1 66 20 136/110 (119) 98 07/14/20 11:51 97.9 68 20 148/68 (94) 98 07/14/20 09:00 Room Air 07/14/20 08:22 80 160/76 07/14/20 08:21 160/76 07/14/20 08:00 98.0 71 20 160/76 (104) 98 07/14/20 04:00 98.4 78 20 148/80 (102) 97 07/14/20 00:00 98.2 70 20 145/80 (101) 97 07/13/20 23:48 74 157/75 07/13/20 21:00 Room Air 07/13/20 20:00 98.4 74 20 157/75 (102) 98 Intake and Output 07/13/20 07/14/20 19:00 07:00 Intake Total 700 ml 1375 ml Output Total 1000 ml 900 ml Balance -300 ml 475 ml Intake Oral 600 ml 420 ml IV Total 100 ml 955 ml Output Urine Total 1000 ml 900 ml Laboratory Tests 07/14/20 05:25: White Blood Count 8.8, Red Blood Count 3.25L, Hemoglobin 9.4L, Hematocrit 26.3L, Mean Corpuscular Volume 81, Mean Corpuscular Hemoglobin 29.0, Mean Corpuscular Hemoglobin Concent 35.8, Red Cell Distribution Width 14.9H, Platelet Count 97L, Mean Platelet Volume 8.7, Neutrophils (%) (Auto) , Lymphocytes (%) (Auto) , Monocytes (%) (Auto) , Eosinophils (%) (Auto) , Basophils (%) (Auto) , Differential Total Cells Counted 100, Neutrophils % (Manual) 78H, Lymphocytes % (Manual) 8L, Monocytes % (Manual) 14H, Eosinophils % (Manual) 0, Basophils % (Manual) 0, Band Neutrophils 0, Platelet Estimate DecreasedL, Platelet Morphology Normal, Anisocytosis 1+, Erythrocyte Sedimentation Rate 63H, Sodium Level 136, Potassium Level 4.8, Chloride Level 104, Carbon Dioxide Level 25, Anion Gap 7, Blood Urea Nitrogen 26H, Creatinine 2.0H, Estimat Glomerular Filtration Rate 32.5, Glucose Level 192H, Calcium Level 8.7, Total Bilirubin 0.6, Aspartate Amino Transf (AST/SGOT) 16, Alanine Aminotransferase (ALT/SGPT) 11L, Alkaline Phosphatase 50, C-Reactive Protein, Quantitative 5.9H, Total Protein 6.8, Albumin 3.1L, Globulin 3.7, Albumin/Globulin Ratio 0.8L Height (Feet): 5 Height (Inches): 7.00 Weight (Pounds): 185 Objective WDWN NAD clear breath sounds bilaterally without rhonchi or wheeze [id number] without MRG NABS nontender no HSM no CCE nonfocal Assessment/Plan Assessment/Plan: TURBT RPG diabetes hypertension elevated cholesterol 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 incentive spirometry 2. Body CT per Urology reviewed and discussed 3. PT evaluation and therapy 4. Hydration 5. Pain management 6. dc today impression, plan, and exam edited and reviewed in detail care discussed with Reddy Christensen MD Jul 14, 2020 18:16
--- NOTE | 2020-07-14 18:21 | Surgery Progress Note ---
Surgery Progress Note Subjective Symptoms: improved, pain absent, tolerating diet, voiding well, passing flatus Objective Last 24 Hour Vital Signs Date Time Temp Pulse Resp B/P (MAP) Pulse Ox O2 Delivery O2 Flow Rate FiO2 07/14/20 16:00 98.1 66 20 136/110 (119) 98 07/14/20 11:51 97.9 68 20 148/68 (94) 98 07/14/20 09:00 Room Air 07/14/20 08:22 80 160/76 07/14/20 08:21 160/76 07/14/20 08:00 98.0 71 20 160/76 (104) 98 07/14/20 04:00 98.4 78 20 148/80 (102) 97 07/14/20 00:00 98.2 70 20 145/80 (101) 97 07/13/20 23:48 74 157/75 07/13/20 21:00 Room Air 07/13/20 20:00 98.4 74 20 157/75 (102) 98 I&O Intake and Output 07/13/20 07/14/20 19:00 07:00 Intake Total 700 ml 1375 ml Output Total 1000 ml 900 ml Balance -300 ml 475 ml Intake Oral 600 ml 420 ml IV Total 100 ml 955 ml Output Urine Total 1000 ml 900 ml Cardiovascular: RSR Respiratory: clear Abdomen: soft, flat, non-tender, present bowel sounds, non-distended Extremities: no edema, no tenderness, no cyanosis Laboratory Tests Test 07/14/20 05:25 White Blood Count 8.8 K/UL (4.8-10.8) Red Blood Count 3.25 M/UL (4.70-6.10) L Hemoglobin 9.4 G/DL (14.2-18.0) L Hematocrit 26.3 % (42.0-52.0) L Mean Corpuscular Volume 81 FL (80-99) Mean Corpuscular Hemoglobin 29.0 PG (27.0-31.0) Mean Corpuscular Hemoglobin Concent 35.8 G/DL (32.0-36.0) Red Cell Distribution Width 14.9 % (11.6-14.8) H Platelet Count 97 K/UL (150-450) L Mean Platelet Volume 8.7 FL (6.5-10.1) Neutrophils (%) (Auto) % (45.0-75.0) Lymphocytes (%) (Auto) % (20.0-45.0) Monocytes (%) (Auto) % (1.0-10.0) Eosinophils (%) (Auto) % (0.0-3.0) Basophils (%) (Auto) % (0.0-2.0) Differential Total Cells Counted 100 Neutrophils % (Manual) 78 % (45-75) H Lymphocytes % (Manual) 8 % (20-45) L Monocytes % (Manual) 14 % (1-10) H Eosinophils % (Manual) 0 % (0-3) Basophils % (Manual) 0 % (0-2) Band Neutrophils 0 % (0-8) Platelet Estimate Decreased L Platelet Morphology Normal Anisocytosis 1+ Erythrocyte Sedimentation Rate 63 MM/HR (0-20) H Sodium Level 136 MMOL/L (136-145) Potassium Level 4.8 MMOL/L (3.5-5.1) Chloride Level 104 MMOL/L (98-107) Carbon Dioxide Level 25 MMOL/L (21-32) Anion Gap 7 mmol/L (5-15) Blood Urea Nitrogen 26 mg/dL (7-18) H Creatinine 2.0 MG/DL (0.55-1.30) H Estimat Glomerular Filtration Rate 32.5 mL/min (>60) Glucose Level 192 MG/DL (74-106) H Calcium Level 8.7 MG/DL (8.5-10.1) Total Bilirubin 0.6 MG/DL (0.2-1.0) Aspartate Amino Transf (AST/SGOT) 16 U/L (15-37) Alanine Aminotransferase (ALT/SGPT) 11 U/L (12-78) L Alkaline Phosphatase 50 U/L (46-116) C-Reactive Protein, Quantitative 5.9 mg/dL (0.00-0.90) H Total Protein 6.8 G/DL (6.4-8.2) Albumin 3.1 G/DL (3.4-5.0) L Globulin 3.7 g/dL Albumin/Globulin Ratio 0.8 (1.0-2.7) L Plan Problems: (1) Abdominal pain Assessment & Plan: 79-year-old male status post TURP presents with abdominal pain in hospital stay urine still remains bloody on continuous bladder irrigation currently. Complaining abdominal discomfort lower pelvis. Surgery called to evaluate patient seen states feels 4 out of 10 discomfort no nausea vomiting no fever no chills labs noted. CT reviewed. Abdominal examination fairly benign just little uncomfortable on deep palpation. Likely residual from inflammation and given the CT findings potentially from the work of abnormal bladder. Currently continue CBI. Unlikely be ready for discharge. Will need to clear urine prior. Okay for diet. Continue current medications. Follow with recommendations. Thank you for let me participate patient's care d/c home f//u thursday with urology Chest: The lungs demonstrate posterior dependent atelectatic changes. No infiltrates, effusions, masses, or nodules. The heart is mildly enlarged. No pericardial effusion. No mediastinal or hilar mass or adenopathy. There are coronary artery calcifications. Esophagus is unremarkable. The thyroid is unremarkable. No axillary or chest wall mass or adenopathy. The bones are unremarkable. Abdomen pelvis: There is a Elizabeth catheter within the bladder. High attenuation material is seen within the bladder lumen, as well as a nondependent gas bubble. The bladder wall is not well-defined. A few other gas bubbles are seen within the bladder lumen as well. Surrounding the bladder, there is marked fluid infiltration of the perivesical fat. A discrete fluid collection is seen anterior to the bladder, measures approximately 17 cm transverse by 2.5 cm AP by 7 cm craniocaudad and presumably occupies the space of Retzius. Fluid is also seen infiltrating into the retroperitoneal fat bilaterally, along the posterior Gerota's fascia, and a very small amount of intraperitoneal fluid is also noted, primarily over the dome of the liver. Fluid is also seen tracking into the bilateral inguinal canals and also to a slight extent surrounding the inferior rectus abdominis musculature. The right kidney is absent. The left kidney demonstrates mild hydronephrosis and moderate hydroureter, hydroureter extending to the distal ureteral orifice. No obstructing mass or stone demonstrated. Lack of IV contrast limits assessment of the renal parenchyma. No gross renal rectal abnormality is demonstrated. The lack of IV contrast limits assessment of the other solid organs. The liver, gallbladder, bile ducts, pancreas are unremarkable. The spleen is enlarged, measuring 15 cm long axis dimension. The adrenals are unremarkable. No retroperitoneal or mesenteric mass or adenopathy. The appendix is normal. No small bowel distention. No free or loculated intraperitoneal gas is demonstrated. The colon is unremarkable. No diverticulosis or diverticulitis. There is an inferior vena cava filter which appears to be in good position. The bones are unremarkable except for mild degenerative spondylosis changes IMPRESSION: Markedly abnormal bladder. High attenuation bladder luminal contents may reflect blood or could represent intraluminal contrast if contrast was used during recent surgery. There is extensive infiltration of the perivesical fat, as well as fluid filling the space of Retzius, infiltration of the bilateral inguinal canals, Gerota's fascia on the left, and a small amount of free intraperitoneal fluid. This raises concern for bladder wall injury. A Elizabeth catheter appears well-positioned Mild left hydronephrosis and moderate left hydroureter extending to the ureteral orifice, without definite obstructive process Absent right kidney Mild splenomegaly Inferior vena cava filter, degenerative spondylosis incidentally noted Mild cardiomegaly. Dependent pulmonary atelectatic changes. Otherwise unremarkable chest (2) Bladder tumor Michael Cuba Jul 14, 2020 18:21
--- NOTE | 2020-07-16 11:57 | Discharge Summary ---
Discharge Summary Hospital Course Date of Admission Jul 13, 2020 at 16:42 Date of Discharge Jul 14, 2020 at 16:45 Admitting Diagnosis Recurrent bladder cancer Reason for Hospitalization: elective surgery HPI Duglas Cifuentes is a 79 year old male who was admitted on Jul 13, 2020 at 16:42 for recurrent bladder cancer. Patient was admitted for elective surgery. Consultations Dr Richardson- general surgery Dr Woods- IM Procedures s/p 07/11/[address] Mejia Transurethral resection of a bladder tumor. Hospital Course status post surgery course of recovery uneventful initially IV fluids s/p perioperative antibiotic patient had a 3 way Elizabeth catheter with continuous bladder irrigation and hand irrigation as needed patient complained of abdominal pain CT scan of the chest , abdomen and pelvis revealed markedly abnormal bladder. Mild left hydronephrosis and moderate left hydroureter without definite obstructive process. Absent right kidney. Inferior vena cava filter. Mild cardiomegaly. Dependent pulmonary atelectatic changes , otherwise unremarkable chest. pulmonary and general surgery followed surgeon cleared patient for diet , lower abdominal/pelvic discomfort felt to be related to abnormal bladder pain management was addressed and controlled remained hemodynamically stable ambulated DVT prophylaxis with SCD provided use of incentive spirometry was encouraged while in the bed tolerated diet , IV fluids discontinued GI prophylaxis provided antiemetics were on board as needed blood pressure and blood sugar were closely monitored home medications continued bowel regimen instituted patient was able to tolerate diet pain was controlled CBI cleared patient was stable for discharge discharge instructions provided patient was discharged with indwelling Elizabeth patient/family aware of Elizabeth catheter care and importance of managing output and check for blood clots follow up with surgeon in the office as advised FINAL DIAGNOSES Recurrent bladder cancer s/p Transurethral resection of a bladder tumor HTN DM High cholesterol Hx of CPA Decreased EF Discharge Medications Continued Medications: Atorvastatin Calcium* (Atorvastatin Calcium*) 20 Mg Tablet 20 MG ORAL BEDTIME for Dyslipidemia, TAB Calcium Carbonate/Vitamin D3 (Oyster [place] 250-Vit D3 125 Tb) 1 Each Tablet 1 EACH PO DAILY for SUPPLEMENT, TAB Carvedilol* (Carvedilol*) 12.5 Mg Tablet 6.25 MG ORAL EVERY 12 HOURS for HTN, TAB Doxazosin Mesylate* (Doxazosin Mesylate*) 1 Mg Tablet 1 MG ORAL DAILY for HTN, TAB Ferrous Sulfate* (Ferrous Sulfate*) 325 Mg Tablet 325 MG ORAL DAILY for SUPPLEMENT, #30 TAB 0 Refills Hydralazine Hcl* (Hydralazine Hcl*) 100 Mg Tablet 100 MG ORAL TID for HTN, TAB Linagliptin (Tradjenta) 5 Mg Tablet 5 MG PO DAILY for DM, TAB Mirabegron (Myrbetriq) 50 Mg Tab.er.24h 50 MG PO DAILY for BLADDER, TAB [place]-3 Fatty Acids ([place]-3) 1,000 Mg Capsule 1000 MG PO DAILY for SUPPLEMENT, CAP Discharge Condition Upon Discharge: stable Discharge Vital Signs Last Vital Signs Date Time Temp Pulse Resp B/P (MAP) Pulse Ox O2 Delivery O2 Flow Rate FiO2 07/14/20 16:00 98.1 66 20 136/110 (119) 98 07/14/20 09:00 Room Air 07/11/20 13:40 3.0 32 Discharge Disposition Patient was discharged home Discharge Instructions Discharge Instructions Special Instructions I have been assigned to complete a D/C Summary on this account. I was not involved in the patient management Marilyn Cortez NP Jul 16, 2020 11:57
== END 2020-07-14 16:45 | disposition home or self-care (01) | DRG 669 ==
LOC: SUR 05:26 → EDBD 09:00 → 3E 11:15 → SUR 07-13 16:36 → 3E 07-13 16:42
PROC: 0TBB8ZZ Excision of Bladder, Via Natural or Artificial Opening Endoscopic (ICD-10-PCS; principal; 2020-07-12)
DX: C67.9 Malignant neoplasm of bladder, unspecified (principal); N13.30 Unspecified hydronephrosis; N18.9 Chronic kidney disease, unspecified; D63.1 Anemia in chronic kidney disease; I10 Essential (primary) hypertension; E11.9 Type 2 diabetes mellitus without complications; Z90.5 Acquired absence of kidney; Z95.828 Presence of other vascular implants and grafts
CPT/HCPCS: 36415; 71250; 74176; 80048; 80053; 82962; 85007; 85025; 85651; 86140; 94003; 94150; J2250; J2405; J2710; J2765; S5561; U0002